=== PATIENT | female | born 2000 | race Hispanic/Latino ===

== ENCOUNTER 2024-12-07 14:41 | Day surgery (SDC) | payer SELFPAY | END 2024-12-07 15:30 | disposition home or self-care (01) | LOC: CSHSDC/OP 14:41 → CSHLD/OP 14:41 | PROVIDERS: ATTEND Obstetrics & Gynecology | DX: O99.891 Other specified diseases and conditions complicating pregnancy (principal); R10.2 Pelvic and perineal pain; Z79.899 Other long term (current) drug therapy; Z3A.25 25 weeks gestation of pregnancy ==